=== PATIENT | male | born 1940 | race Caucasian/White ===

== ENCOUNTER 2016-11-11 15:07 | Inpatient (IN) | payer OTHER ==
[2016-11-11] MEDS ORDERED: SODIUM CHLORIDE 1,000 ML IV STA (15:53)
[2016-11-11 16:03] LABS: MCH 31.4 pg (25.7-33.7); MCHC 33.3 g/dl (32.0-35.9); MEAN CELL VOLUME 94.3 fl (80-96); PLATELET COUNT 281 K/MM3 (134-434); RDW 12.6 % (11.9-15.9); WHITE BLOOD COUNT 17.6 K/mm3 (4.0-10.0)
--- NOTE | 2016-11-11 16:15 | PDOC ---
History of Present Illness - General Chief Complaint: Weakness Stated Complaint: DEHYDRATION Time Seen by Provider: 11/11/16 15:24 - History of Present Illness Initial Comments: 11/11/16 16:09 76 yo M with no significant pmh who presents with weakness. He reports episode of weakness around 1100 where he states "legs went out" when he stepped out of his car and walked 25 steps. Denies past episodes of weakness. Endorses SOB this AM. Denies fevers/chills, N/V, chest pain, GI symptoms, urinary complaints , dizziness, syncope, vision changes, pain, numbness/tingling, weakness. Reports low oral intake. 1 coffee and 1 beer today. States that he did not eat today and son usually brings him sandwiches to eat. Smokes 1 1/2 PPD. Past History - Past Medical History Allergies/Adverse Reactions: Allergies Allergy/AdvReac Type Severity Reaction Status Date / Time No Known Allergies Allergy Verified 11/11/16 15:34 Home Medications: Ambulatory Orders No Home Medications 0 dose .ROUTE UTDICT 04/07/12 Cancer: Yes (BRAIN TUMOR) Suicide Attempt (Hx): No - Surgical History Neurologic Surgery: Yes (BRAIN) - Psycho/Social/Smoking Cessation Hx Anxiety: No Suicidal Ideation: No Smoking Status: Yes Smoking History: Current every day smoker Have you smoked in the past 12 months: No Number of Cigarettes Smoked Daily: 40 Information on smoking cessation initiated: No Hx Alcohol Use: No Drug/Substance Use Hx: No Substance Use Type: None Review of Systems - Review of Systems Comments:: 11/11/16 16:15 GENERAL/CONSTITUTIONAL: + Weakness. No fever or chills. HEAD, EYES, EARS, NOSE AND THROAT: No change in vision. No ear pain or discharge. No sore throat. CARDIOVASCULAR: No chest pain or shortness of breath RESPIRATORY: No cough, wheezing, or hemoptysis. GASTROINTESTINAL: Constipation. No nausea, vomiting, diarrhea or constipation. GENITOURINARY: No dysuria, frequency, or change in urination. MUSCULOSKELETAL: No joint or muscle swelling or pain. No neck or back pain. SKIN: No rash NEUROLOGIC: No headache, vertigo, loss of consciousness, or change in strength/ sensation. ENDOCRINE: No increased thirst. No abnormal weight change HEMATOLOGIC/LYMPHATIC: No anemia, easy bleeding, or history of blood clots. ALLERGIC/IMMUNOLOGIC: No hives or skin allergy. *Physical Exam - Vital Signs Last Vital Signs Temp Pulse Resp BP Pulse Ox 97.9 F 98 H 20 116/74 94 L 11/11/16 15:30 11/11/16 15:30 11/11/16 15:30 11/11/16 15:30 11/11/16 15:30 - Physical Exam Comments: 11/11/16 16:16 GENERAL: Awake, alert, and fully oriented, in no acute distress HEAD: No signs of trauma, normocephalic, atraumatic EYES: PERRLA, EOMI, sclera anicteric, conjunctiva clear ENT: Auricles normal inspection, hearing grossly normal, nares patent, oropharynx clear without exudates. Moist mucosa NECK: Normal ROM, supple, no lymphadenopathy, JVD, or masses LUNGS: Rales present in BL left lung base. No distress, speaks full sentences. HEART: Regular rate and rhythm, normal S1 and S2, no murmurs, rubs or gallops, peripheral pulses normal and equal bilaterally. ABDOMEN: Soft, nontender, normoactive bowel sounds. No guarding, no rebound. No masses EXTREMITIES: Normal inspection, Normal range of motion, no edema. No clubbing or cyanosis. NEUROLOGICAL: Cranial nerves II through XII grossly intact. Normal speech, normal gait, no focal sensorimotor deficits. Gross motor strength intact. Absent dysmetria on finger to nose. Normal rapid alternating movements. biceps and patellar reflex 2+ symmetric. SKIN: Warm, Dry, normal turgor, no rashes or lesions noted. 11/11/16 16:31 Heart Score/ECG Review - Age Age: >/= 65 - Risk Factors Risk Factors Heart Score: Yes Smoking History Based on the list above the patient has:: 1-2 risk factors - ECG Intrepretation Rhythm: Regular Rhythm - Rogers Rogers: Normal - P and SC Delta Wave(s) Present: No WPW: No - QRS Poor R Wave Progression: No Q Wave Present: No - ST and T Early Repolarization: No Flattened T Waves: No Prolonged Q-T Interval: No - ECG Impressions Normal ECG: Yes Non-specific ST Elevation: No Ischemic Changes: No Torsades briseida Pointes: No WPW: No ED Treatment Course - LABORATORY CBC & Chemistry Diagram: 11/11/16 15:44 11/11/16 15:44 - RADIOLOGY Radiology Studies Ordered: Category Date Time Status CHEST X-RAY PORTABLE* [RAD] Stat Radiology 11/11/16 15:53 Ordered Radiograph Interpretation: 11/11/16 17:25 EXAM#: TYPE/EXAM: RESULT: [id number] RAD/CHEST X-RAY PORTABLE* Chest: Weakness Since 12/04/2009, the patient has developed a patchy left infiltrate with some coarse changes of the right base. There is bowel in the right upper quadrant. The mediastinum is not widened. Correlation recommended. Please note superimposed in the infiltrate could be a masslike density. If findings do not resolve then further imaging with CT may be of help. Impression: Bilateral patchy infiltrates, left greater than right. Questionable left upper lobe masslike density. Correlation recommended. Follow- up imaging needed. Reported By: Vern Dukes MD 11/11/16 3622 Medical Decision Making - Medical Decision Making 11/11/16 16:19 76 yo M with no significant pmh who presents with weakness. Pt. endorses low oral intake. Physical exam reveals rales at left lung base. Pt. hypoxic on prensentation. 89 % RA. Reports loosing 100+ in one year. There is concern of malnutrition, electrolyte abnormality, pneumonia, PE, Malignancy. 11/11/16 16:56 ED course: CBC: WBC 17.6 CMP Mg Trop UA 11/11/16 16:57 CXR Azithromycin 500 mg 11/11/16 17:24 CMP: Na 133, Ca 8.1 11/11/16 17:24 INR 1.15 11/11/16 17:26 CXR: BL infiltrates Left > Right. Left upper lobe mass like density. 11/11/16 18:17 CT chest w/o contrast [facility] [place] [facility] Per report by internal medicine, [facility] group will admit pt. to their group and will come evaluate pt. in ED. *DC/Admit/Observation/Transfer Diagnosis at time of Disposition: Hypoxemia, Lung mass Pneumonia Qualifiers: Pneumonia type: due to unspecified organism Laterality: left Lung location: unspecified part of lung Qualified Code(s): J18.9 - Pneumonia, unspecified organism - Discharge Dispostion Condition at time of disposition: Stable Admit: Yes - Attestations Physician Attestion: 11/11/16 18:10 I, Dr. Alejo Lloyd, attest that this document has been prepared under my direction and personally reviewed by me in its entirety. I further attest, that it accurately reflects all work, treatment, procedures and medical decision -making performed by me. 11/11/16 18:58
[2016-11-11 16:27] LABS: INR 1.15 (0.82-1.09); PROTHROMBIN TIME (PATIENT) 12.7 SEC (9.98-11.88)
--- NOTE | 2016-11-11 16:31 | PDOC ---
Attending Attestation - Resident Resident Name: Alejo Lloyd - ED Attending Attestation I have performed the following: I have examined & evaluated the patient, The case was reviewed & discussed with the resident, I agree w/resident's findings & plan, Exceptions are as noted - HPI HPI: 11/11/16 16:55 76y M no known pmhx presents with compalint of episode of generalized weakness. the pt denies any focal ewakness, fever/chills, cough, cp, palpitations, diarrhea, dysuria. on exam pt has rales diffusely in his L lung, vitals noted for hypoxia to 88% on RA on my exam. No signs of LLE edema, calf tenderness. cxr noted for infiltrate vs mass on L lung will obtain ct chest as pt clinically not presenting with pna like symptoms will give pt abx while awaiting ct chest CRITICAL CARE DOCUMENTATION: I spent ~35 minutes of Critical Care time, excluding separately billable procedures, involving high complexity decision making to assess, manipulate and support vital system function(s) to treat single or multiple vital organ system failure and/or to prevent further life threatening deterioration of the patient' s condition. - Physicial Exam PE: 11/12/16 18:03 see abovbe - Medical Decision Making 11/12/16 18:03 see above
[2016-11-11 16:44] LABS: ALBUMIN 2.7 g/dl (3.4-5.0); ANION GAP 11 (8-16); BILIRUBIN,TOTAL 0.6 mg/dL (0.2-1.0); CALCIUM 8.1 mg/dL (8.5-10.1); CO2 24 mmol/L (21-32); CREATININE 0.7 mg/dL (0.7-1.3); GLUCOSE,RANDOM 87 mg/dL (74-106); SGOT/AST 19 U/L (15-37); SGPT/ALT 15 U/L (12-78); TOT PROT 6.1 g/dl (6.4-8.2)
[2016-11-11 16:45] LABS: ALK PHOS 59 U/L (45-117)
[2016-11-11] MEDS ORDERED: AZITHROMYCIN IVPB 500 MG in DEXTROSE 5%-WATER - 250 ML IVPB ONE (17:03)
[2016-11-11] MEDS ORDERED: CEFTRIAXONE 1 GM in DEXTROSE 5%-WATER - 100 ML IVPB ONE (17:03)
[2016-11-11 17:35] LABS: PLATELET ESTIMATE ADEQUATE (NORMAL)
[2016-11-11] MEDS ORDERED: CEFTRIAXONE 50 ML ONE (18:10)
[2016-11-11] MEDS ORDERED: AZITHROMYCIN IVPB 250 ML IVPB ONE (18:36)
--- NOTE | 2016-11-11 19:13 | HP ---
CHIEF COMPLAINT: Increased SOB, Weakness PCP: HISTORY OF PRESENT ILLNESS: This is a 76 y/o man with Tobacco use 1 1/2 PPD. Who presents to the ED with increased SOB, weakness x today. Patient reports having labored breathing while walking. Patient reports having R- hip pain increased with movement. Patient reports a 40-50lb unintentional weight loss since April 2016. Patient denies fever, chills, cough, dizziness, CP, AP, N/V/D, constipation, melena, hematochezia, hematuria, dysuria ER course was notable for: (1) WBC 17.6 (2) Chest Xray- Bilateral patchy infiltrates L>R, ?masslike density (3) Spo2 89% RA ~ 94% 3LNC Recent Travel: None PAST MEDICAL HISTORY: Brain Tumor Tobacco 1 1/2PPD PAST SURGICAL HISTORY: Brain Tumor removal Social History: Smoking: Current 1.5 PPD x 60 yrs Alcohol: Daily, Beer Drugs: None Lives with sister Family History: Allergies No Known Allergies Allergy (Verified 11/11/16 15:34) HOME MEDICATIONS: Home Medications Medication Instructions Recorded No Home Medications 0 dose .ROUTE UTDICT 04/07/12 REVIEW OF SYSTEMS CONSTITUTIONAL: generalized weakness Absent: fever, chills, diaphoresis, malaise, loss of appetite, weight change HEENT: Absent: rhinorrhea, nasal congestion, throat pain, throat swelling, difficulty swallowing, mouth swelling, ear pain, eye pain, visual changes CARDIOVASCULAR: Absent: chest pain, syncope, palpitations, irregular heart rate, lightheadedness , peripheral edema RESPIRATORY: Absent: cough, shortness of breath, dyspnea with exertion, orthopnea, wheezing, stridor, hemoptysis GASTROINTESTINAL: Absent: abdominal pain, abdominal distension, nausea, vomiting, diarrhea, constipation, melena, hematochezia GENITOURINARY: Absent: dysuria, frequency, urgency, hesitancy, hematuria, flank pain, genital pain MUSCULOSKELETAL: arthralgia Absent: myalgia, joint swelling, back pain, neck pain SKIN: Absent: rash, itching, pallor HEMATOLOGIC/IMMUNOLOGIC: Absent: easy bleeding, easy bruising, lymphadenopathy, frequent infections ENDOCRINE: unexplained weight loss Absent: unexplained weight gain, heat intolerance, cold intolerance NEUROLOGIC: Absent: headache, focal weakness or paresthesias, dizziness, unsteady gait, seizure, mental status changes, bladder or bowel incontinence PSYCHIATRIC: Absent: anxiety, depression, suicidal or homicidal ideation, hallucinations. PHYSICAL EXAMINATION GENERAL: Cachectic, awake, alert, and oriented x2, in no acute distress. HEAD: Normal with no signs of trauma. EYES: Pupils equal, round and reactive to light, extraocular movements intact, sclera anicteric, conjunctiva clear. No lid lag. EARS, NOSE, THROAT: Ears normal, nares patent, oropharynx clear without exudates. Moist mucous membranes. NECK: Normal range of motion, supple without lymphadenopathy, JVD, or masses. LUNGS: Coarse rhonchi and rales throughout. No accessory muscle use. HEART: Regular rate and rhythm, normal S1 and S2 without murmur, rub or gallop. ABDOMEN: Soft, nontender, not distended, normoactive bowel sounds, no guarding, no rebound, no masses. No hepatomegaly or splenomegaly. MUSCULOSKELETAL: Normal range of motion at all joints. No bony deformities or tenderness. No CVA tenderness. UPPER EXTREMITIES: 2+ pulses, warm, well-perfused. No cyanosis. No clubbing. No peripheral edema. LOWER EXTREMITIES: 2+ pulses, warm, well-perfused. No calf tenderness. No peripheral edema. NEUROLOGICAL: Cranial nerves II-XII intact. Normal speech. Gait not observed. PSYCHIATRIC: Cooperative. Good eye contact. Appropriate mood and affect. SKIN: Warm, dry, poor turgor, no rashes or lesions noted, normal capillary refill. Laboratory Results - last 24 hr 11/11/16 11/11/16 11/11/16 15:44 15:44 15:53 WBC 17.6 H RBC 3.70 L Hgb 11.6 L Hct 34.9 L MCV 94.3 MCH 31.4 MCHC 33.3 RDW 12.6 Plt Count 281 MPV 7.0 L Neutrophils % 63.0 Lymphocytes % 10.0 Monocytes % 6.0 Eosinophils % 4.0 Band Neutrophils 17.0 H Differential Comment Manual diff done Platelet Estimate Adequate Platelet Comment Few large plts Morphology Comment Slide scanned INR 1.15 H Sodium 133 L Potassium 3.8 Chloride 98 Carbon Dioxide 24 Anion Gap 11 BUN 17 Creatinine 0.7 Creat Clearance w eGFR > 60 Random Glucose 87 Calcium 8.1 L Magnesium Total Bilirubin 0.6 AST 19 ALT 15 Alkaline Phosphatase 59 Troponin I Total Protein 6.1 L Albumin 2.7 L 11/11/16 11/11/16 15:53 16:33 WBC RBC Hgb Hct MCV MCH MCHC RDW Plt Count MPV Neutrophils % Lymphocytes % Monocytes % Eosinophils % Band Neutrophils Differential Comment Platelet Estimate Platelet Comment Morphology Comment INR Sodium Potassium Chloride Carbon Dioxide Anion Gap BUN Creatinine Creat Clearance w eGFR Random Glucose Calcium Magnesium 2.5 H Total Bilirubin AST ALT Alkaline Phosphatase Troponin I 0.02 Total Protein Albumin Radiograph Interpretation: 11/11/16 17:25 EXAM#: TYPE/EXAM: RESULT: [id number] RAD/CHEST X-RAY PORTABLE* Chest: Weakness Since 12/04/2009, the patient has developed a patchy left infiltrate with some coarse changes of the right base. There is bowel in the right upper quadrant. The mediastinum is not widened. Correlation recommended. Please note superimposed in the infiltrate could be a masslike density. If findings do not resolve then further imaging with CT may be of help. Impression: Bilateral patchy infiltrates, left greater than right. Questionable left upper lobe masslike density. Correlation recommended. Follow- up imaging needed. Reported By: Vern Dukes MD 11/11/16 6031 ASSESSMENT/PLAN: This is a 76 y/o man with a PMHx of: Brain Ca (removal, no chemo), Tobacco Dependency 1 1/2 PPD. Admitted for Hypoxemia, Bilateral Pneumonia for further evaluation of their emergent condition. Problem List: 1. Hypoxemia 2. Bilateral Pneumonia 3. ?Mass to ANGELICA 4. Tobacco Dependency 5. Leukocytosis Problem List - Problem (1) Hypoxemia Assessment/Plan: - Likely secondary to Pneumonia vs ?Lung Mass - Chest Xray-reviewed - O2 - Appreciate Pulmonary Consult - Monitor Vitals - Tobacco Cessation Code(s): R09.02 - HYPOXEMIA (2) Pneumonia Assessment/Plan: - CURB65 Score 2 - Chest Xray- Bilateral Infiltrates - +Leukocytosis with Bandemia - CT Chest- pending r/o ?Lung Mass - Blood Cultures-pending - Urine Legionellla - Ceftriaxone, Azithromycin given in ED for CAP, will continue - Appreciate ID Consult - Dobs prn - Monitor CBC - Monitor Vitals - O2 Code(s): J18.9 - PNEUMONIA, UNSPECIFIED ORGANISM Qualifiers: Pneumonia type: due to unspecified organism Laterality: left Lung location: unspecified part of lung Qualified Code(s): J18.9 - Pneumonia, unspecified organism (3) Lung mass Assessment/Plan: - Patient has a 1 1/2PPD x 60 yr hx, with increased SOB, SALDANA and unintentional weight loss approx 40-50lb 6 months - Chest xray- see above - CT chest- report pending - Appreciate Pulmonary Consult - O2 - Monitor Spo2 Code(s): R91.8 - OTHER NONSPECIFIC ABNORMAL FINDING OF LUNG FIELD (4) Leucocytosis Assessment/Plan: - Likely secondary to Pneumonia vs Malignancy - Blood Cultures-pending - Started on Empiric ABX, will continue - Monitor CBC Code(s): D72.829 - ELEVATED WHITE BLOOD CELL COUNT, UNSPECIFIED Qualifiers: Leukocytosis type: bandemia Qualified Code(s): D72.825 - Bandemia (5) Tobacco dependency Assessment/Plan: - Smoking cessation discussed with patient, who is not amendable Code(s): F17.200 - NICOTINE DEPENDENCE, UNSPECIFIED, UNCOMPLICATED (6) DVT prophylaxis Assessment/Plan: - OOB - SCDs - Lovenox SQ Code(s): [id number] - Visit type - Emergency Visit Emergency Visit: Yes ED Registration Date: 11/11/16 Care time: The patient presented to the Emergency Department on the above date and was hospitalized for further evaluation of their emergent condition. - New Patient This patient is new to me today: Yes Date on this admission: 11/11/16 - Critical Care Critical Care patient: No
[2016-11-11] MEDS ORDERED: CEFTRIAXONE 1 GM in DEXTROSE 5%-WATER - 50 ML IVPB ONE (19:33)
[2016-11-11] MEDS ORDERED: CEFTRIAXONE 50 ML IVPB SCH (19:44)
[2016-11-11 23:51] VITALS: BMI 16.2
[2016-11-12] MEDS ORDERED: ALBUTEROL SO4 2.5/IPRATROPIUM 0.5 INH SOL 3 ML VIAL.NEB. NEB PRN (06:41)
[2016-11-12 07:54] LABS: BASOPHIL 0.6 % (0-2.0); EOSINOPHIL 7.8 % (0-4.5); MCH 31.8 pg (25.7-33.7); MCHC 33.5 g/dl (32.0-35.9); MEAN CELL VOLUME 94.8 fl (80-96); MEAN PLT VOLUME 7.4 fl (7.5-11.1); NEUTROPHILS 76.6 % (42.8-82.8); PLATELET COUNT 267 K/MM3 (134-434); RDW 12.5 % (11.9-15.9); WHITE BLOOD COUNT 19.3 K/mm3 (4.0-10.0)
[2016-11-12 08:57] LABS: ANION GAP 10 (8-16); CO2 27 mmol/L (21-32); CREATININE 0.5 mg/dL (0.7-1.3); GLUCOSE,RANDOM 73 mg/dL (74-106)
[2016-11-12 09:21] LABS: URINE APPEARANCE SLCLOUDY; URINE BILIRUBIN NEGATIVE (NEGATIVE); URINE BLOOD NEGATIVE (NEGATIVE); URINE COLOR DKYELLOW; URINE GLUCOSE (UA) NEGATIVE (NEGATIVE); URINE KETONE 1+ (NEGATIVE); URINE LEUK ESTERASE NEGATIVE (NEGATIVE); URINE NITRITE NEGATIVE (NEGATIVE); URINE UROBILINOGEN NEGATIVE mg/dL (0.2-1.0)
[2016-11-12 09:26] LABS: URINE PROTEIN 1+ (NEGATIVE)
[2016-11-12 09:28] LABS: URINE BACTERIA RARE /hpf (NONE SEEN); URINE HYALINE CAST 1 /lpf; URINE MUCUS FEW; URINE RBC 1 /hpf (0-3); URINE WBC 3 /hpf (3-5)
--- NOTE | 2016-11-12 10:03 | PN ---
Physical Exam: SUBJECTIVE: Patient seen and examined. He is requesting to go home. Author explained risks and benefits of discharge/AMA which patient was unable to verbalize understanding. He is refusing all treatments and does not want any further evaluation of of radiographic findings. OBJECTIVE: Vital Signs 3 Period Temp Pulse Resp BP Sys/Cagle Pulse Ox Last 24 Hr 97.7 F-97.9 F 79-88 18-18 107-120/61-66 85-94 GENERAL: The patient is awake, alert, and oriented x2 stating date as "November 18 2016." SOB. Pallor noted to face. HEAD: Temporal wasting present. EYES: PERRL, extraocular movements intact. Pallor present to conjunctiva. No ptosis. ENT: Superficial growths to bridge of nose. NECK: Trachea midline, full range of motion, supple. LUNGS: Breath sounds diminished to auscultation bilaterally. Speaking in full sentences. Increased work of breathing. SpO2-76% on RA-> 93% on 40% ventimask. HEART: Regular rate and rhythm, S1, S2. ABDOMEN: Soft, nontender, nondistended, normoactive bowel sounds. EXTREMITIES: 2+ pulses, warm, well-perfused, no edema. NEUROLOGICAL: Cranial nerves II through XII grossly intact. Normal speech, gait steady. PSYCH: Normal mood, normal affect. SKIN: Warm, dry, normal turgor, no rashes or lesions noted Laboratory Results - last 24 hr 3 11/12/16 11/12/16 11/12/16 05:30 06:00 06:00 WBC 19.3 H RBC 3.73 L Hgb 11.8 Hct 35.4 MCV 94.8 MCH 31.8 MCHC 33.5 RDW 12.5 Plt Count 267 MPV 7.4 L Neutrophils % 76.6 D Lymphocytes % 7.6 L D Monocytes % 7.4 Eosinophils % 7.8 H D Basophils % 0.6 Sodium 133 L Potassium 3.7 Chloride 96 L Carbon Dioxide 27 Anion Gap 10 BUN 14 Creatinine 0.5 L D Random Glucose 73 L Calcium 8.0 L Urine Color Dkyellow Urine Appearance Slcloudy Urine pH 5.0 Urine Protein 1+ H Urine Glucose (UA) Negative Urine Ketones 1+ H Urine Blood Negative Urine Nitrite Negative Urine Bilirubin Negative Urine Urobilinogen Negative Ur Leukocyte Esterase Negative Urine RBC 1 Urine WBC 3 Urine Bacteria Rare Hyaline Casts 1 Urine Mucus Few Active Medications Generic Name Dose Route Start Last Admin Trade Name Freq PRN Reason Stop Dose Admin Albuterol/Ipratropium 1 amp 11/12/16 06:41 11/12/16 07:10 Duoneb - NEB 1 amp Q6H PRN Administration SHORTNESS OF BREATH Enoxaparin Sodium 40 mg 11/12/16 10:00 Lovenox - SQ DAILY KONG Azithromycin 250 mls @ 250 mls/hr 11/12/16 10:00 Zithromax 500mg Ivpb (Pre-Docked) IVPB DAILY KONG Ceftriaxone Sodium 50 mls @ 100 mls/hr 11/11/16 19:44 Rocephin 1gm Ivpb (Pre-Docked) IVPB ONCE KONG ASSESSMENT/PLAN: A: 76yo man with PMH brain CA s/p resection with SOB and bilateral lung infiltrates L>R on CT and CXR. P: 1. Hypoxia - b/l PNA vs neoplasm - O2- titrate for SpO2>91% - ID Bobde consulted - continue Rocephin and Zithromax for CAP - pulm consulted 2. CAP - Ceftriaxone - Zithromax - blood cx pending - Urine Ag pending - SIRS resolved - ID consult - O2 as above 3. 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 Leukocytosis - WBC uptrending - afebrile - neoplasm vs CAP - SIRS resolved 5. Smoking cessation - Nicotine TD - Counseling offered and declined 6. F/E/N - regular diet with Ensure supplement - replete prn 7. PPX - Lovenox - SCD Dispo- requires continued inpatient evaluation of acute medical condition Visit type - Emergency Visit Emergency Visit: Yes ED Registration Date: 11/11/16 Care time: The patient presented to the Emergency Department on the above date and was hospitalized for further evaluation of their emergent condition. - New Patient This patient is new to me today: Yes Date on this admission: 11/14/16 - Critical Care Critical Care patient: No
--- NOTE | 2016-11-12 10:31 | CON.PULM ---
Consult Consult Specialty:: PULM/CCM Referred by:: ANÍBAL Reason for Consultation:: SOB / abnormal CXR - History of Present Illness Chief Complaint: SOB History of Present Illness: 76 M, with listed medical history. Apparent previous brain CA, S/P resection, active smoker, and likely COPD. Admitted via the ER. CXR : suspected PNA +/- Mass in the ANGELICA. Patient is awake and alert, but mildly confused. Mildly tachypneic on 40% VM O2 saturating at 91%. He is cachetic with temporal wasting. He denies recent travel history or sick contacts. He denies night sweats or hemoptysis. CT Chest : Large masses in the ANGELICA / extensive emphysema / possible lymphatic spread of tumor suspected. - History Source History Provided By: Patient Limitations to Obtaining History: Poor Historian - Alcohol/Substance Use Hx Alcohol Use: No - Smoking History Smoking history: Current every day smoker Have you smoked in the past 12 months: No Aproximately how many cigarettes per day: 40 Home Medications - Allergies Allergies/Adverse Reactions: Allergies Allergy/AdvReac Type Severity Reaction Status Date / Time No Known Allergies Allergy Verified 11/11/16 15:34 - Home Medications Home Medications: Ambulatory Orders No Home Medications 0 dose .ROUTE UTDICT 04/07/12 Review of Systems - Review of Systems Constitutional: reports: Malaise. denies: Chills, Fever, Night Sweats, Unintentional Wgt. Loss Eyes: reports: No Symptoms HENT: reports: No Symptoms Neck: reports: No Symptoms Cardiovascular: reports: Shortness of Breath. denies: Chest Pain, Edema, Palpitations Respiratory: reports: Cough, SOB. denies: Hemoptysis, Orthopnea, Snoring, Wheezing Gastrointestinal: reports: No Symptoms Genitourinary: reports: No Symptoms Breasts: reports: No Symptoms Reported Musculoskeletal: reports: No Symptoms Integumentary: reports: No Symptoms Neurological: reports: No Symptoms Endocrine: reports: No Symptoms Hematology/Lymphatic: reports: No Symptoms Psychiatric: reports: No Symptoms Physical Exam Vital Sings: Vital Signs Temperature 97.9 F 11/12/16 06:00 Pulse Rate 79 11/12/16 07:16 Respiratory Rate 18 11/12/16 06:00 Blood Pressure 107/61 11/12/16 06:00 O2 Sat by Pulse Oximetry (%) 91 L 11/12/16 07:16 Constitutional: Yes: Cachectic, Mild Distress, Poor Hygeine Eyes: Yes: Conjunctiva Clear HENT: Yes: Atraumatic. No: Epistaxis Neck: Yes: Supple, Trachea Midline Cardiovascular: Yes: Regular Rate and Rhythm Respiratory: Yes: Cough, Diminished, On Venti-Mask, Rhonchi, SOB, Tachypnea, Wheezes. No: Accessory Muscle Use, Stridor ...Inspection: Yes: WNL ...Clubbing: No Gastrointestinal: Yes: Normal Bowel Sounds, Soft Renal/: Yes: WNL Musculoskeletal: Yes: WNL Extremities: Yes: WNL Edema: No Peripheral Pulses WNL: Yes Neurological: Yes: Alert, Oriented Psychiatric: Yes: Alert, Oriented Labs: CBC, BMP 11/12/16 06:00 11/12/16 06:00 Imaging - Results Chest X-ray: Report Reviewed, Image Reviewed Cat Scan: Report Reviewed, Image Reviewed Problem List - Problems (1) Hypoxemia Code(s): R09.02 - HYPOXEMIA (2) Leucocytosis Code(s): D72.829 - ELEVATED WHITE BLOOD CELL COUNT, UNSPECIFIED Qualifiers: Leukocytosis type: bandemia Qualified Code(s): D72.825 - Bandemia (3) Lung mass Code(s): R91.8 - OTHER NONSPECIFIC ABNORMAL FINDING OF LUNG FIELD (4) Pneumonia Code(s): J18.9 - PNEUMONIA, UNSPECIFIED ORGANISM Qualifiers: Pneumonia type: due to unspecified organism Laterality: left Lung location: unspecified part of lung Qualified Code(s): J18.9 - Pneumonia, unspecified organism (5) Tobacco dependency Code(s): F17.200 - NICOTINE DEPENDENCE, UNSPECIFIED, UNCOMPLICATED Assessment/Plan Patient is currently refusing all treatment. He is refusing to keep his O2 on. He wants to sign AMA. I agree that he does not seem to comprehend his medical condition. ABX if he is willing. Dominant lesion can likely be easily accessed via IR guided needle biopsy if patient is willing to undergo the workup. Ochoa-culture if he is willing Check urinary antigen No smoking counseled BD [place] Medrol Will follow Thank you. Dr Nicolas
[2016-11-12] MEDS: AZITHROMYCIN IVPB 250 ML IVPB SCH (11:29)
[2016-11-12] MEDS: ENOXAPARIN NA (PORCINE) 40 MG/0.4 ML DISP.SYRIN SQ SCH (11:29)
[2016-11-12] MEDS: methylPREDNISolone NA SUCC 40 MG/1 ML VIAL IVPB SCH ×2 (11:29→23:17)
[2016-11-12] MEDS: ARFORMOTEROL TARTRATE 15 MCG/2 ML VIAL NEB SCH ×2 (11:43→22:15)
[2016-11-12] MEDS ORDERED: CEFTRIAXONE 1 GM in DEXTROSE 5%-WATER - 50 ML IVPB SCH (12:00)
--- NOTE | 2016-11-12 14:50 | CONSULT ---
Consult Consult Specialty:: Infectious Disease Reason for Consultation:: Pneumonia - History of Present Illness Chief Complaint: weakness, shortness of breath History of Present Illness: 76 y.o. male presented to ER with complaints of weakness and dyspnea on exertion.. He is a smoker for over 60 years (1.5 ppd) and reports weightloss of about 50 lbs in the last 2 years. Has been coughing but unable to bring up sputum, denies fever/chills. WBC elevated and hypoxia noted on admission. Currently is weak but responsive and follows directions , aao x 3. Denies any other specific complaints. CXR shows b/l infiltrates , possible lung mass. Documents reviewed. - History Source History Provided By: Patient, Medical Record - Past Medical History MEDICAL TRANSLATOR: Yes: Other (brain tumor resection? Pt is not clear) - Past Surgical History Additional Surgical History: ? brain tumor resection - Alcohol/Substance Use Hx Alcohol Use: No - Smoking History Smoking history: Current every day smoker Have you smoked in the past 12 months: No Aproximately how many cigarettes per day: 40 - Social History Usual Living Arrangement: Other (daughter's family lives upstairs, pt himself lives in basement) Home Medications - Allergies Allergies/Adverse Reactions: Allergies Allergy/AdvReac Type Severity Reaction Status Date / Time No Known Allergies Allergy Verified 11/11/16 15:34 - Home Medications Home Medications: Ambulatory Orders No Home Medications 0 dose .ROUTE UTDICT 04/07/12 Review of Systems - Review of Systems Constitutional: reports: Unintentional Wgt. Loss, Weakness Eyes: reports: No Symptoms HENT: reports: No Symptoms Neck: reports: No Symptoms Cardiovascular: reports: No Symptoms Respiratory: reports: Cough, SOB on Exertion Gastrointestinal: reports: No Symptoms Genitourinary: reports: No Symptoms Integumentary: reports: No Symptoms Neurological: reports: Weakness Endocrine: reports: Unexplained Weight Loss Hematology/Lymphatic: reports: No Symptoms Psychiatric: reports: No Symptoms Physical Exam Vital Signs: Vital Signs Temperature 97.9 F 11/12/16 06:00 Pulse Rate 79 11/12/16 07:16 Respiratory Rate 18 11/12/16 06:00 Blood Pressure 107/61 11/12/16 06:00 O2 Sat by Pulse Oximetry (%) 91 L 11/12/16 07:16 Constitutional: Yes: Cachectic Respiratory: Yes: On Nasal O2, Rales, Rhonchi Neurological: Yes: Weakness (generalized) Labs: CBC, BMP 11/12/16 06:00 11/12/16 06:00 Imaging - Results Chest X-ray: Report Reviewed Problem List - Problems (1) Hypoxemia Code(s): R09.02 - HYPOXEMIA (2) Leucocytosis Code(s): D72.829 - ELEVATED WHITE BLOOD CELL COUNT, UNSPECIFIED Qualifiers: Leukocytosis type: bandemia Qualified Code(s): D72.825 - Bandemia (3) Lung mass Code(s): R91.8 - OTHER NONSPECIFIC ABNORMAL FINDING OF LUNG FIELD (4) Pneumonia Code(s): J18.9 - PNEUMONIA, UNSPECIFIED ORGANISM Qualifiers: Pneumonia type: due to unspecified organism Laterality: left Lung location: unspecified part of lung Qualified Code(s): J18.9 - Pneumonia, unspecified organism (5) Tobacco dependency Code(s): F17.200 - NICOTINE DEPENDENCE, UNSPECIFIED, UNCOMPLICATED Assessment/Plan Bilateral PNA with leukocytosis Lung mass, pulmonary consult noted -- Ceftriaxone/Azithromycin IV for now - monitor wbc, temps, vitals/O2 sat closely -urine Ag legionella/s.pneum -- if leukocytosis persists will consider broader spectrum antibiotics -- F/u blood culture results - F/u CT scan results when done
[2016-11-13 08:20] LABS: MCHC 33.6 g/dl (32.0-35.9); MEAN CELL VOLUME 95.3 fl (80-96); MEAN PLT VOLUME 7.3 fl (7.5-11.1); PLATELET COUNT 349 K/MM3 (134-434); RDW 12.7 % (11.9-15.9); WHITE BLOOD COUNT 14.2 K/mm3 (4.0-10.0)
[2016-11-13 08:39] LABS: ANION GAP 9 (8-16); CALCIUM 8.6 mg/dL (8.5-10.1); CO2 29 mmol/L (21-32); CREATININE 0.7 mg/dL (0.7-1.3); GLUCOSE,RANDOM 145 mg/dL (74-106)
--- NOTE | 2016-11-13 09:17 | EKG ---
Test Reason : Blood Pressure : / mmHG Vent. Rate : 094 BPM Atrial Rate : 094 BPM P-R Int : 142 ms QRS Dur : 086 ms QT Int : 364 ms P-R-T Axes : 075 028 059 degrees QTc Int : 455 ms NORMAL SINUS RHYTHM LOW VOLTAGE QRS BORDERLINE ECG WHEN COMPARED WITH ECG OF 04-DEC-2009 18:47, NO SIGNIFICANT CHANGE WAS FOUND Confirmed by AAMIR MALHOTRA MD ([id number]) on 11/13/2016 9:17:24 AM Referred By: Confirmed By:AAMIR MALHOTRA MD
--- NOTE | 2016-11-13 09:18 | PN ---
Progress Note (short form) - Note Progress Note: Sitting in bed without his O2 on. Says he feels fine and nothing is wrong with his breathing. Says he is leaving today. Intake & Output 11/10/16 11/11/16 11/12/16 11/13/16 23:59 23:59 23:59 23:59 Intake Total 350 120 Balance 350 120 Weight 113 lb Last Vital Signs Temp Pulse Resp BP Pulse Ox 97.7 F 84 20 106/88 95 11/13/16 06:00 11/13/16 06:00 11/13/16 06:00 11/13/16 06:00 11/12/16 22:00 Active Medications Albuterol/Ipratropium (Duoneb -) 1 amp NEB Q6H PRN PRN Reason: SHORTNESS OF BREATH Last Admin: 11/12/16 07:10 Dose: 1 amp Arformoterol Tartrate (Brovana (Restricted To Pulmonology/Resp) -) 1 amp NEB BID [facility] Last Admin: 11/12/16 22:15 Dose: Not Given Enoxaparin Sodium (Lovenox -) 40 mg SQ DAILY [facility] Last Admin: 11/12/16 11:29 Dose: Not Given Azithromycin (Zithromax 500mg Ivpb (Pre-Docked)) 250 mls @ 250 mls/hr IVPB DAILY [facility] Last Admin: 11/12/16 11:29 Dose: Not Given Ceftriaxone Sodium 1 gm/ (Dextrose) 50 mls @ 100 mls/hr IVPB DAILY [facility] Methylprednisolone Sodium Succinate (Solu-Medrol -) 40 mg IVPB Q12H [facility] Last Admin: 11/12/16 23:17 Dose: 40 mg Constitutional: Yes: Cachectic, Mild Distress, Poor Hygeine Eyes: Yes: Conjunctiva Clear HENT: Yes: Atraumatic. No: Epistaxis Neck: Yes: Supple, Trachea Midline Cardiovascular: Yes: Regular Rate and Rhythm Respiratory: Yes: Cough, Diminished, On Venti-Mask, Rhonchi, SOB, Tachypnea, Wheezes. No: Accessory Muscle Use, Stridor ...Inspection: Yes: WNL ...Clubbing: No Gastrointestinal: Yes: Normal Bowel Sounds, Soft Renal/: Yes: WNL Musculoskeletal: Yes: WNL Extremities: Yes: WNL Edema: No Peripheral Pulses WNL: Yes Neurological: Yes: Alert, non-focal Psychiatric: Yes: Alert, Oriented, mildly confused Labs: Laboratory Results - last 24 hr 11/12/16 11/13/16 11/13/16 05:30 06:00 06:00 WBC 14.2 H RBC 4.04 Hgb 12.9 Hct 38.5 MCV 95.3 MCH 32.0 MCHC 33.6 RDW 12.7 Plt Count 349 D MPV 7.3 L Neutrophils % Y Lymphocytes % Y Sodium 134 L Potassium 4.1 Chloride 96 L Carbon Dioxide 29 Anion Gap 9 BUN 18 D Creatinine 0.7 D Random Glucose 145 H D Calcium 8.6 Urine Color Dkyellow Urine Appearance Slcloudy Urine pH 5.0 Ur Specific [place] >= 1.030 H Urine Protein 1+ H Urine Glucose (UA) Negative Urine Ketones 1+ H Urine Blood Negative Urine Nitrite Negative Urine Bilirubin Negative Urine Urobilinogen Negative Ur Leukocyte Esterase Negative Urine RBC 1 Urine WBC 3 Urine Bacteria Rare Hyaline Casts 1 Urine Mucus Few Imaging - Results Chest X-ray: Report Reviewed, Image Reviewed Cat Scan: Report Reviewed, Image Reviewed Problem List - Problems (1) Hypoxemia Code(s): R09.02 - HYPOXEMIA (2) Leucocytosis Code(s): D72.829 - ELEVATED WHITE BLOOD CELL COUNT, UNSPECIFIED Qualifiers: Leukocytosis type: bandemia Qualified Code(s): D72.825 - Bandemia (3) Lung mass Code(s): R91.8 - OTHER NONSPECIFIC ABNORMAL FINDING OF LUNG FIELD (4) Pneumonia Code(s): J18.9 - PNEUMONIA, UNSPECIFIED ORGANISM Qualifiers: Pneumonia type: due to unspecified organism Laterality: left Lung location: unspecified part of lung Qualified Code(s): J18.9 - Pneumonia, unspecified organism (5) Tobacco dependency Code(s): F17.200 - NICOTINE DEPENDENCE, UNSPECIFIED, UNCOMPLICATED Assessment/Plan Patient reports he does not want any workup. I do not think he fully comprehends his condition ABX as ordered Dominant lesion can likely be easily accessed via IR guided needle biopsy if patient is willing to undergo the workup. No smoking BD [place] Medrol Dr Nicolas Problem List - Problems (1) Hypoxemia Code(s): R09.02 - HYPOXEMIA (2) Leucocytosis Code(s): D72.829 - ELEVATED WHITE BLOOD CELL COUNT, UNSPECIFIED Qualifiers: Leukocytosis type: bandemia Qualified Code(s): D72.825 - Bandemia (3) Lung mass Code(s): R91.8 - OTHER NONSPECIFIC ABNORMAL FINDING OF LUNG FIELD (4) Pneumonia Code(s): J18.9 - PNEUMONIA, UNSPECIFIED ORGANISM Qualifiers: Pneumonia type: due to unspecified organism Laterality: left Lung location: unspecified part of lung Qualified Code(s): J18.9 - Pneumonia, unspecified organism (5) Tobacco dependency Code(s): F17.200 - NICOTINE DEPENDENCE, UNSPECIFIED, UNCOMPLICATED
[2016-11-13] MEDS: ARFORMOTEROL TARTRATE 15 MCG/2 ML VIAL NEB SCH (09:41)
[2016-11-13 09:50] VITALS: PULSE 92
[2016-11-13] MEDS ORDERED: DEXTROSE 5%-WATER - 50 ML IVPB ONE (10:36)
[2016-11-13] MEDS ORDERED: cefTRIAXone SODIUM 1 GM VIAL ONE (10:36)
[2016-11-13 10:42] VITALS: BP 88/57; TEMP 97.5
[2016-11-13] MEDS: methylPREDNISolone NA SUCC 40 MG/1 ML VIAL IVPB SCH (11:30)
[2016-11-13] MEDS: ENOXAPARIN NA (PORCINE) 40 MG/0.4 ML DISP.SYRIN SQ SCH (11:30)
[2016-11-13] MEDS: AZITHROMYCIN IVPB 250 ML IVPB SCH (11:30)
[2016-11-13 12:01] LABS: PLATELET ESTIMATE ADEQUATE (NORMAL)
--- NOTE | 2016-11-13 12:52 | DS ---
Physical Exam: SUBJECTIVE: Patient no seen. Eloped prior to eval. OBJECTIVE: Vital Signs Period Temp Pulse Resp BP Sys/Cagle Pulse Ox Last 24 Hr 97.4 F-98.4 F 50-95 16-20 84-114/50-88 95-99 PT eloped prior to exam Laboratory Results - last 24 hr 11/12/16 11/13/16 11/13/16 05:30 06:00 06:00 WBC 14.2 H RBC 4.04 Hgb 12.9 Hct 38.5 MCV 95.3 MCH 32.0 MCHC 33.6 RDW 12.7 Plt Count 349 D MPV 7.3 L Neutrophils % 93.0 H D Lymphocytes % 4.0 L D Band Neutrophils 3.0 D Differential Comment Manual diff done Platelet Estimate Adequate Sodium 134 L Potassium 4.1 Chloride 96 L Carbon Dioxide 29 Anion Gap 9 BUN 18 D Creatinine 0.7 D Random Glucose 145 H D Calcium 8.6 Urine Color Dkyellow Urine Appearance Slcloudy Urine pH 5.0 Ur Specific [place] >= 1.030 H Urine Protein 1+ H Urine Glucose (UA) Negative Urine Ketones 1+ H Urine Blood Negative Urine Nitrite Negative Urine Bilirubin Negative Urine Urobilinogen Negative Ur Leukocyte Esterase Negative Urine RBC 1 Urine WBC 3 Urine Bacteria Rare Hyaline Casts 1 Urine Mucus Few HOSPITAL COURSE: Date of Admission:11/11/16 Date of Discharge: 11/13/16 Minutes to complete discharge: 36 Discharge Summary Reason For Visit: HYPOXEMIA, LUNG MASS, PNEUMONIA Hospital Course: Initial Hospital Course: Briefly, this 76 year old male with apparent previous brain CA, S/P resection, and ?COPD, active smoker 1/2 PPD presented to the ED with increased SOB, weakness. Patient reported having labored breathing while walking and R- hip pain increased with movement. Patient reported a 40-50lb unintentional weight loss since April 2016. He denies night sweats or hemoptysis Subsequent Hospital Course: - CT scan: Large masses in the [place]ICA / extensive emphysema / possible lymphatic spread of tumor suspected. - Pulm recommended biopsy - D/w pulm patient was not interested in work up per his evaluation - I was unable to speak with patient he eloped prior to my evaluation Condition: Stable - Instructions Disposition: ELOPED - Home Medications Comprehensive Discharge Medication List: Ambulatory Orders No Home Medications 0 dose .ROUTE UTDICT 04/07/12 This patient is new to me today: Yes Date on this admission: 11/13/16 Emergency Visit: Yes ED Registration Date: 11/11/16 Care time: The patient presented to the Emergency Department on the above date and was hospitalized for further evaluation of their emergent condition. Critical Care patient: No - Discharge Referral Referred to [facility] No
== END 2016-11-13 11:00 | disposition home health service (06) | DRG 194 ==
LOC: JER 15:07 → JERBED 18:24 → J8W 21:19
PROVIDERS: ADMIT Internal Medicine; ATTEND Nurse Practitioner Acute Care
DX: J18.9 Pneumonia, unspecified organism (principal); Z68.1 Body mass index [BMI] 19.9 or less, adult; E86.0 Dehydration; F17.210 Nicotine dependence, cigarettes, uncomplicated; R91.8 Other nonspecific abnormal finding of lung field; R09.02 Hypoxemia; J44.9 Chronic obstructive pulmonary disease, unspecified; D72.825 Bandemia; R63.4 Abnormal weight loss; Z85.841 Personal history of malignant neoplasm of brain
CPT/HCPCS: 36415; 71010-TC; 71250-TC; 80048; 80053; 81003; 81015; 83735; 84484; 85025; 85610; 87040; 93005; 93010; 94640; 99285-25